=== PATIENT | female | born 1995 | race Caucasian/White ===

== ENCOUNTER 2018-02-27 13:06 | Emergency (ER) | payer OTHER | END 2018-02-27 14:03 | disposition home or self-care (01) | LOC: M ED 13:06 | DX: J20.9 Acute bronchitis, unspecified (principal); F17.210 Nicotine dependence, cigarettes, uncomplicated; Z98.890 Other specified postprocedural states | CPT/HCPCS: 99282 ==

== ENCOUNTER 2018-06-17 15:39 | Emergency (ER) | payer OTHER ==
[~2018-06-17] VITALS: Ht 167.6 cm; Wt 75.0 kg
[2018-06-17 15:39] VITALS: BP 114/63
[~2018-06-17 15:39] MED LIST: FLON1SPR NARES; MUCI600T37 PO; TUSS1CAP5 PO; TUSS1SUS2 PO
[2018-06-17] MEDS ORDERED: MELO15TA28 (15:44)
[2018-06-17] MEDS ORDERED: PRED10TA2 PO (16:17)
[2018-06-17] MEDS ORDERED: ROBA500T PO (16:17)
== END 2018-06-17 16:38 | disposition home or self-care (01) ==
LOC: M ED 15:39
DX: S39.002A Unspecified injury of muscle, fascia and tendon of lower back, initial encounter (principal); X58.XXXA Exposure to other specified factors, initial encounter; Y92.89 Other specified places as the place of occurrence of the external cause; F17.210 Nicotine dependence, cigarettes, uncomplicated

== ENCOUNTER 2018-08-09 19:30 | Inpatient (IN) | payer OTHER ==
[~2018-08-09] VITALS: Ht 167.6 cm; Wt 72.7 kg
[~2018-08-09 19:30] MED LIST changes: +MELO15TA28; +PRED10TA2 PO; +ROBA500T PO
[2018-08-09 20:47] LABS: HEMATOCRIT 41.6 % (36.0-47.0); HEMOGLOBIN 13.6 g/dl (12.0-15.5); MEAN CORPUSCULAR HEMOGLOBIN 29.4 pg (27.0-33.0); MEAN CORPUSCULAR HGB CONC 32.7 g/dl (32.0-36.5); MEAN CORPUSCULAR VOLUME 89.8 fl (80.0-96.0); PLATELET COUNT, AUTOMATED 263 10^3/uL (150-450); RED BLOOD COUNT 4.63 10^6/uL (4.00-5.40); WHITE BLOOD COUNT 8.7 10^3/uL (4.0-10.0)
[2018-08-09 21:08] LABS: HCG, SERUM QUALITATIVE NEGATIVE (NEGATIVE)
[2018-08-09 21:16] LABS: ACETAMINOPHEN LEVEL < 2.0 UG/ML (10.0-30.0); ALBUMIN 4.1 GM/DL (3.2-5.2); ALT/SGPT 17 U/L (12-78); BILIRUBIN,DIRECT < 0.1 MG/DL (0.0-0.2); BILIRUBIN,TOTAL 0.2 MG/DL (0.2-1.0); BLOOD UREA NITROGEN 9 MG/DL (7-18); CALCIUM LEVEL 8.7 MG/DL (8.5-10.1); CARBON DIOXIDE LEVEL 26 MEQ/L (21-32); CHLORIDE LEVEL 109 MEQ/L (98-107); CREATININE FOR GFR 0.75 MG/DL (0.55-1.30); ETHYL ALCOHOL (ETHANOL) < 0.003 % (0.000-0.010); GLOMERULAR FILTRATION RATE > 60.0 (>60); GLUCOSE, FASTING 105 MG/DL (70-100); POTASSIUM SERUM 4.5 MEQ/L (3.5-5.1); SALICYLATE LEVEL 2.5 MG/DL (5.0-30.0); SODIUM LEVEL 140 MEQ/L (136-145); THYROID STIMULATING HORMONE 0.941 uIU/ML (0.358-3.740); TOTAL PROTEIN 7.4 GM/DL (6.4-8.2)
[2018-08-09 21:25] LABS: AMPHETAMINES LEVEL URINE NEGATIVE (NEGATIVE); BARBITURATES URINE NEGATIVE (NEGATIVE); BENZODIAZEPINES URINE NEGATIVE (NEGATIVE); CANNABINOIDS URINE NEGATIVE (NEGATIVE); COCAINE METABOLITE URINE NEGATIVE (NEGATIVE); METHADONE URINE NEGATIVE (NEGATIVE); OPIATES URINE NEGATIVE (NEGATIVE); PHENCYCLIDINE URINE NEGATIVE (NEGATIVE)
[2018-08-10] MEDS ORDERED: ACETAMINOPHEN TAB 650MG DOSE (2X325MG) PO PRN (15:00)
[2018-08-10] MEDS ORDERED: traZODone 50 MG TAB PO PRN (15:00)
[2018-08-10] MEDS ORDERED: MAALOX 30 ML SUSP *UDC PO PRN (15:00)
[2018-08-10] MEDS ORDERED: MOM 30ML SUSPENSION UDC PO PRN (15:00)
[2018-08-10] MEDS ORDERED: LORazepam 1 MG TAB PO PRN (15:00)
[2018-08-10] MEDS ORDERED: NEXP1IMP SC (15:56)
[2018-08-10 16:08] VITALS: BP 112/68
[2018-08-11 06:56] VITALS: BP 117/66
[2018-08-11] MEDS ORDERED: SERTRALINE HCL 25 MG TABLET PO SCH (09:00)
--- NOTE | 2018-08-11 11:49 | CR.PDOC ---
General Date of Consultation: Aug 11, 2018 Consultation REASON FOR CONSULTATION/CHIEF COMPLAINT: Presented to the ER with suicidal ideation. HISTORY OF PRESENT ILLNESS: Patient is a 23-year-old female with no significant past medical history who presented to the emergency room with suicidal ideation. This is the second time, patient has experienced suicidal ideation. The first time she received therapy. This time, she had indicated to her Reba that she was experiencing suicidal ideation that prompted her to come to the emergency room. Patient has indicated that she has not acted out on or thought of acting out on her suicidal ideation. Hospitalist service was consult for medical management. Currently patient denies any headache, nausea, vomiting, chest pain, shortness of breath, palpitations, cough, abdominal pain, constipation, diarrhea or any discomfort with urination. Patient has noted that her appetite has been fairly decent and has not noticed any significant changes in her weight. ALLERGIES: Please see below. HOME MEDICATIONS: Please see below. 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 ASSESSMENT/PLAN: Suicidal ideation - Patient has indicated that this is the second time she has experienced suicidal ideation event - The first instance, she received therapy - Patient has never acted out, never had any thoughts of acting out on her suicidal ideation - Currently being managed by psychiatry Currently, there are no medical problems that require urgent attention - Please reconsult as needed DVT prophylaxis - c/w early ambulation Instructional Technology Facilitator from inpatient mental health unit was present during this exam; Inna Vital Signs/I&O Vital Signs Date Time Temp Pulse Resp B/P (MAP) Pulse Ox O2 Delivery O2 Flow Rate FiO2 08/11/18 08:37 Room Air 08/11/18 06:56 98.2 87 16 117/66 (83) 08/10/18 16:08 98 Allergies Coded Allergies: No Known Allergies (Unverified , 06/17/18) Home Medications Scheduled Etonogestrel (Nexplanon) 68 Mg Implant, 68 MG SC ASDIRECTED, (Reported) CHRISTINA RAINEY MD Aug 11, 2018 11:49
[2018-08-11] MEDS ORDERED: hydrOXYzine 50 MG TAB PO PRN (13:00)
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
[2018-08-11] MEDS: SERTRALINE HCL 25 MG TABLET PO SCH (17:14)
[2018-08-11 18:00] VITALS: BP 118/71
[2018-08-12 06:42] VITALS: BP 120/65
[2018-08-12] MEDS: SERTRALINE HCL 25 MG TABLET PO SCH (08:33)
[2018-08-12] MEDS ORDERED: SERTRALINE HCL 25 MG TABLET PO SCH (09:00)
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
[2018-08-12 18:00] VITALS: BP 115/56
--- NOTE | 2018-08-12 20:33 | ECGEPIP ---
Stationary ECG Study [facility] Test Date: 2018-08-11 Pat Name: AYDE SALMON Department: Room: [place] [address] Gender: F Industrial Trainer: JOSE RAFAEL : 1995 Requested By: AVILA CHEN PGY-1 Order Number: [id number] Reading MD: Jermaine Reddy Measurements Intervals Bath Rate: 61 P: 49 [place]: 140 QRS: 68 QRSD: 81 T: 50 QT: 387 QTc: 391 Interpretive Statements SINUS RHYTHM Normal Electronically Signed On 08-12-2018 20:33:25 EDT by Jermaine Reddy
[2018-08-13 06:43] VITALS: BP 119/63
[2018-08-13] MEDS ORDERED: SERTRALINE HCL 25 MG TABLET PO SCH (09:00)
[2018-08-13] MEDS ORDERED: TRAZO50TA PO (10:25)
[2018-08-13] MEDS ORDERED: HYDRO50TAB PO (10:25)
[2018-08-13] MEDS ORDERED: SERT25TA88 PO (10:25)
--- NOTE | 2018-08-23 19:33 | MHDSPDOC ---
[facility] Discharge Summary Discharge Summary DATE OF ADMISSION: Aug 10, 2018 at 14:46 DATE OF DISCHARGE: Aug 13, 2018 at 11:45 DISCHARGE DIAGNOSES: 1. Major depressive disorder, recurrent, with anxious distress REASON FOR ADMISSION: Patient is a 23 -year-old , female, who hs past psychiatric history of MDD and is being followed by [facility] (11 therapy sessions). Per PSA mental health evaluation: "Pt states that she did not show up for work today so her GOYO called her several times & she did not answer the phone. They went to her house but she did not answer the door. They went back a second time & pt opened the door. She told her GOYO that she has been depressed & that some days she does not want to be alive. Pt has multiple stressors including marital px's & has no friends in the area. She states her birthday was a couple weeks ago & she sat home by herself. Her recently left for [employer] & right before he left she found out that he has been cheating on her, which she discovered because he gave her an STD. Pt has been in the [employer] for two years with no deployments. Pt c/o depression, anxiety, hopelessness & helplessness, & px's sleeping (difficulty falling asleep & vivid dreams)." As per Dr. Basurto: "States she has having suicidal thoughts since this past March. States many stressors including: "all of my friends moving away at the same time" and in July reports she found out about infidelities by who is still stationed in [employer] after she was positive on STD check. This information agrees with her PSA mental health evaluation above. Says she has chronic depression, says she has most recently lost interest in her favorite video game, "Fallout". Also reports she has low energy and only watches TV/falls then falls asleep. 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 Reports she is bothered by the fact her day is "slow and boring" and the speciality is not her interest. Says this month she will be able to look into new opportunities since she has reached the 2 year marin. 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 Says she is anxious talking to new people and she worries she will not be able to make friends. She also reports an anxiety attack yesterday, denies history of panic attacks.Today denies SI/HI/AVH/luigi." CONSULTANTS INVOLVED: None TREATMENT AND PROGRESS ON THE UNIT : Upon initial evaluation the patient was noticed to be anxious and she was reacting to many changes in her life, like being stationed at [employer] while her was in [facility], recently discovering that he had been unfaithful (she got an STD from him), having many friends leave the area and , spending her birthday by herself. She reported she had a panic attack recently. she had been tired, had trouble sleeping, she had felt hopeless and helpless and had wished not to be alive. She has been unsatisfied with her life, she doesn't like her job and she hopes that now that it's going to be 2 years since she came to [place], that she will be able to do another job. She was started on a small dose of Sertraline, 25 mgs, but the dose was adjusted to 50 mgs PO daily and she didn't report any side effects. She also was prescribed Hydroxyzine 50 mgs PO Q4H for anxiety and Trazodone 50 mgs PO QHSP for insomnia. The patienthad a good response to medications. HOSPITAL COURSE: As above DISCHARGE ASSESSMENT: Patient was not homicidal, not suicidal and not psychotic at the time of her discharge. 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 MENTAL STATUS EXAMINATION ON DISCHARGE: Patient is a 23-year old female, who is in no acute distress, in hospital lothi with good hygiene, normal eye-contact, cooperative Speech: Is normal in rate, rhythm and volume. Language skills are good. Thought processes including: linear, logical. Thought content: anxiety related to situation with boyfriend and [place] jobs [place]. Chronic depression since starting at . Abstract reasoning, and computation: normal. Description of associations: normal. Description of abnormal or psychotic thoughts: denies psychotic thoughts, denies SI/HI/AVH. Judgment: improving. Insight: good. Orientation: x4. Recent and remote memory: intact. Attention span and concentration: fair. Language: Persian. Fund of knowledge: average. Mood: "good". Affect: congruent with mood, appropriate DIAGNOSES: 1. Major depressive disorder, recurrent, with anxious distress MEDICATIONS ON DISCHARGE: Scheduled Etonogestrel (Nexplanon) 68 Mg Implant, 68 MG SC ASDIRECTED, (Reported) Sertraline HCl (Sertraline HCl) 25 Mg Tablet, 50 MG PO DAILY for DEPRESSION, #14 Scheduled PRN Hydroxyzine HCl (Hydroxyzine HCl) 50 Mg Tablet, 50 MG PO Q4HP PRN for anxiety, #42 Trazodone HCl (Trazodone HCl) 50 Mg Tablet, 50 MG PO QHSP PRN for INSOMNIA, #7 PLAN/FOLLOWUP ARRANGEMENTS: Follow Up Care Education Label * Mental Health Appt 1 * Mental Health [address] [place] [address] * Established With This Provider Yes * Additional information [facility]/DRUM1 ROBERTO CARLOS,RHO [id number]@1400 GRP/60 PENDING 2D BCT EB CLINIC/2BCT BOZENA,RACHE [id number]@1000 FTR/60 PENDING 2D BCT EB CLINIC/2BCT BOZENA,RACHE [id number]@1000 FTR/60 PENDING 2D BCT EB CLINIC/2BCT BZOENA,RACHE [id number]@1100 FTR/60 PENDING 2D BCT EB CLINIC/2BCT BOZENA,RACHE [id number]@1100 FTR/60 PENDING 2D BCT EB CLINIC/2BCT BOZENA,RACHE [id number]@1100 FTR/60 PENDING 2D BCT EB CLINIC/2BCT VIKKIYVOKARIE [id number]@1300 SPEC/90 PENDING Follow Up Care Education Label * Medical * Medical Follow Up [facility] * Established With This Provider Yes * Therapist [facility] * Date Aug 17, 2018 * Time 08:00 * * Additional information Please remember to bring your ID to this appointment. The amount of time spent in the coordination of care for this patient was approximately 30 minutes. Medications Scheduled Etonogestrel (Nexplanon) 68 Mg Implant, 68 MG SC ASDIRECTED, (Reported) Sertraline HCl (Sertraline HCl) 25 Mg Tablet, 50 MG PO DAILY for DEPRESSION, #14 Scheduled PRN Hydroxyzine HCl (Hydroxyzine HCl) 50 Mg Tablet, 50 MG PO Q4HP PRN for anxiety, #42 Trazodone HCl (Trazodone HCl) 50 Mg Tablet, 50 MG PO QHSP PRN for INSOMNIA, #7 Allergies Coded Allergies: No Known Allergies (Unverified , 06/17/18) JUAN DIEGO MARTINES MD Aug 23, 2018 19:14
== END 2018-08-13 11:45 | disposition home or self-care (01) | DRG 885 ==
LOC: M ED 19:30 → M ED INP 08-10 14:46 → M PSY 08-10 16:30
PROVIDERS: ADMIT Psychiatry & Neurology Psychiatry; ATTEND Psychiatry & Neurology Psychiatry
DX: F33.9 Major depressive disorder, recurrent, unspecified (principal); F17.210 Nicotine dependence, cigarettes, uncomplicated; F41.9 Anxiety disorder, unspecified